=== PATIENT | male | born 1975 | race Hispanic/Latino ===

== ENCOUNTER → 2018-04-30 09:09 | Outpatient (CLI) | payer OTHER, SELFPAY ==
[2018-04-30 09:56] LABS: HEMOLYSIS < 15 (0-50); Iron 105 ug/dL (49-181)
[2018-04-30 09:58] LABS: Alanine Aminotransferase 80 IU/L (21-72); Albumin 4.9 g/dL (3.5-5.0); Albumin Globulin Ratio 1.6 (1.0-2.8); Alkaline Phosphatase 55 U/L (38-126); Aspartate Aminotransferase 38 IU/L (17-59); Bilirubin Total 2.5 mg/dL (0.2-1.3); Bilirubin Unconjugated 2.2 mg/dL (0.0-1.1); Blood Urea Nitrogen 12 mg/dL (9-20); Calcium 9.6 mg/dL (8.4-10.2); Carbon Dioxide 29 mmol/L (22-32); Chloride 101 mmol/L (98-107); Estimated Glomerular Filt Rate > 60.0 mL/min (>60); Globulin 3.1 g/dL (1.7-4.1); Glucose 103 mg/dL (70-100); HEMOLYSIS < 15 (0-50); Potassium 4.6 mmol/L (3.4-5.1); Sodium 139 mmol/L (137-145)
[2018-04-30 10:07] LABS: Percent Iron Saturation 29 % (20-50); Total Iron Binding Capacity 368 ug/dL (261-462); Transferrin 304 mg/dL (206-381)
[2018-04-30 10:49] LABS: Hep C Virus Ab w/Reflex Quant NEGATIVE s/c (NEGATIVE)
[2018-05-03 13:10] LABS: Ceruloplasmin 27 mg/dL (18-36)
[2018-05-04 22:09] LABS: ANA Screen NEGATIVE (Negative); DNA Antibody Crithidia IFA NEGATIVE (Negative); Rheumatoid Factor <14 IU/mL; Sjogren Antiboday SS-A <1.0 NEG AI (<1.0 NEGATIVE); Sjogren Antiboday SS-B <1.0 NEG AI (<1.0 NEGATIVE); Sm Antibody <1.0 NEG AI (<1.0 NEGATIVE); Sm/RNP Antibody <1.0 NEG AI (<1.0 NEGATIVE)
== END ==
PROVIDERS: PCP Internal Medicine; Visit Provider Internal Medicine
DX: R74.0 Nonspecific elevation of levels of transaminase and lactic acid dehydrogenase [LDH] (principal); R94.5 Abnormal results of liver function studies
CPT/HCPCS: 80048; 80076; 82390; 83540; 83550; 86038; 86376; 86430; 86803

== ENCOUNTER 2018-09-28 10:18 | Emergency (ER) | payer OTHER, SELFPAY ==
[2018-09-28 10:28] VITALS: BP 133/85; PULSE 86; RESP 18; TEMP 36.9; O2SAT 100; BMI 27.3
--- NOTE | 2018-09-28 10:30 | ED_ITS ---
HPI - General Adult General Chief complaint: Extremity Problem,Nontraumatic Stated complaint: Electrical shock at home Time Seen by Provider: 09/28/18 10:29 Source: patient Mode of arrival: ambulatory Limitations: no limitations History of Present Illness HPI narrative: 43-year-old male who was working on a 110 light socket at his house. He states that he thought that he had turned the sports development officer however when he was using his tools he received shot. He states that he felt ago through both of his fingers. No loss of consciousness. No problems breathing. States he is having a small amount of chest pain med also has a diagnosis of costochondritis. Has not tried anything for symptoms prior to arrival. Related Data Home Medications Medication Instructions Recorded Confirmed celecoxib [Celebrex] 200 mg PO BIDCC #0 05/18/17 06/21/18 omeprazole 20 mg capsule,delayed 20 mg PO DAILY 03/22/18 06/21/18 release rizatriptan 10 mg tablet See Rx Instructions PO .COMPLEX 06/21/18 PRN tab Previous Rx's Medication Instructions Recorded Right Shoulder Pillow #1 ea 12/28/17 verapamil ER 180 mg 24 hr 180 mg PO DAILY #90 cap 03/14/18 capsule,extended release Allergies Allergy/AdvReac Type Severity Reaction Status Date / Time No Known Drug Allergies Allergy Verified 06/21/18 15:22 Review of Systems Constitutional Denies fever(s) Cardiovascular Reports chest pain and Denies dyspnea Respiratory Denies dyspnea Gastrointestinal Gastrointestinal: Denies abdominal pain, Denies nausea and Denies vomiting Genitourinary Denies dysuria Musculoskeletal Denies myalgias and Denies arthralgias Comments: Pain in bilateral fingers Integumentary/Breasts Denies lesions and Denies rash Neurologic Denies behavioral changes Psychiatric Denies behavioral changes Hematologic/Lymphatic Denies easy bleeding and Denies easy bruising [facility] Medical History Transaminitis (Chronic) Abnormal LFTs (Chronic) GERD (gastroesophageal reflux disease) (Chronic ~2005) 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) Migraine with aura and without status migrainosus, not intractable (Chronic 02/15/17) Gilbert's syndrome (Chronic 04/06/17) Acne (Chronic ~1990) Migraines (Chronic ~2011) Shoulder pain (Chronic ~2012) Tinnitus (Chronic ~1998) Chicken pox (Resolved ~1979) Uveitis (Resolved ~2002) Surgical History Anesthesia (Resolved) History of removal of cyst (Resolved) History of tonsillectomy (~1978) Family History Child Age: 21 Hypertension Mental health problem Grandfather Lupus Prostate cancer Hypertension Stroke Diabetes mellitus Grandmother Age: 90 Hypertension Cervical cancer Sister Age: 36 Cancer Mental health problem DCIS (ductal carcinoma in situ) Mother Autoimmune disease Social History Smoking Status: Former smoker Social History Smoking Status: Former smoker Exam Initial Vital Signs Initial Vital Signs: Vital Signs Temperature 98.5 F 09/28/18 10:28 Pulse Rate 86 09/28/18 10:28 Respiratory Rate 18 09/28/18 10:28 Blood Pressure 133/85 09/28/18 10:28 Pulse Oximetry 100 09/28/18 10:28 Const General: cooperative, comfortable, well developed, well groomed and No acute distress Orientation: alert and awake HENMT Head: normal to inspection and normocephalic Chest Chest: normal inspection of the chest and No crepitus Resp Effort & Inspection: normal respiratory effort Auscultation: clear to auscultation bilaterally Cardio Rate: regular rate Rhythm: regular rhythm Pulses: radial pulses present GI Inspection: non-distended Palpation: soft, No firm and No tender Skin Lesions: lesions noted Rashes: rash noted Other: No william on the skin. No lesions. Neuro General: alert, awake and oriented x3 Speech: speech normal Motor: muscle tone normal throughout Extrem General: normal to inspection and capillary refill normal Psych Appearance: grossly normal and well kempt Course Orders Ordered: ED Orders 09/28/18 10:35 EKG-12 Lead Stat Vital Signs - 8 hr 09/28/18 10:28 Temperature 98.5 F Pulse Rate 86 Respiratory Rate 18 Blood Pressure 133/85 Pulse Oximetry 100 Medical Decision Making ECG Data Attestation: I personally reviewed and interpreted this ECG as follows: Prior ECG tracings: not available for review Interpretation: Sinus rhythm Ventricular rate is 72 Normal axis Normal QRS Normal QTC No ST T wave changes MDM Narrative Medical decision making narrative: Patient's EKG is unremarkable. No arrhythmia on the monitor. No william on the areas of his skin where he was shocked. Hold on further workup for now. Patient was given return precautions and follow-up instructions. He expressed understanding and agreement plan. Discharge Plan Departure Patient Disposition: Home Clinical Impression: Electrocution Instructions: Electrical William and Injuries Activity Restrictions/Additional Instructions: No abnormal findings found today on your exam. Return to the emergency department for any new or worsening symptoms Prescriptions: No Action celecoxib [Celebrex] 200 MG capsule 200 mg PO BIDCC Qty: 0 RF: 0 omeprazole 20 mg capsule,delayed release(DR/EC) 20 mg PO DAILY RF: 0 rizatriptan 10 mg tablet See Patient Comments mg PO .COMPLEX PRN (Reason: migraine headache) RF: 0 Right Shoulder Pillow Qty: 1 RF: 0 verapamil 180 mg capsule,ext rel. pellets 24 hr 180 mg PO DAILY Qty: 90 RF: 3 Referrals: Duc Gannon MD [Primary Care Provider] -
[2018-09-28 11:00] VITALS: BP 113/80; PULSE 79; RESP 18; O2SAT 98
[2018-09-28 11:26] VITALS: BP 127/78; PULSE 79; RESP 18; TEMP 36.3; O2SAT 98
== END 2018-09-28 11:28 | disposition home or self-care (01) ==
PROVIDERS: Emergency Provider Emergency Medicine; Family Provider Internal Medicine; PCP Internal Medicine
DX: T75.4XXA Electrocution, initial encounter (principal)
CPT/HCPCS: 93005; 99282; 99283

== ENCOUNTER → 2018-10-04 09:19 | Outpatient (CLI) | payer OTHER, SELFPAY ==
[2018-10-04 10:23] LABS: Alanine Aminotransferase 53 IU/L (21-72); Albumin 5.2 g/dL (3.5-5.0); Albumin Globulin Ratio 1.7 (1.0-2.8); Alkaline Phosphatase 67 U/L (38-126); Aspartate Aminotransferase 34 IU/L (17-59); BUN Creatinine Ratio 16.3 (6-22); Bilirubin Total 2.7 mg/dL (0.2-1.3); Bilirubin Unconjugated 2.4 mg/dL (0.0-1.1); Blood Urea Nitrogen 13 mg/dL (9-20); Calcium 10.1 mg/dL (8.4-10.2); Carbon Dioxide 30 mmol/L (22-32); Chloride 99 mmol/L (98-107); Estimated Glomerular Filt Rate > 60.0 mL/min (>60); Glucose 92 mg/dL (70-100); HEMOLYSIS < 15 (0-50); Sodium 142 mmol/L (137-145); Total Protein 8.2 g/dL (6.3-8.2)
== END ==
PROVIDERS: PCP Internal Medicine; Visit Provider Internal Medicine
DX: R74.0 Nonspecific elevation of levels of transaminase and lactic acid dehydrogenase [LDH] (principal); R94.5 Abnormal results of liver function studies
CPT/HCPCS: 36415; 80048; 80076

== ENCOUNTER → 2019-05-27 09:46 | Outpatient (CLI) | payer OTHER, SELFPAY ==
[2019-05-27 11:08] LABS: Alanine Aminotransferase 53 IU/L (<50); Albumin 5.5 g/dL (3.5-5.0); Albumin Globulin Ratio 1.7 (1.0-2.8); Alkaline Phosphatase 72 U/L (38-126); Aspartate Aminotransferase 33 IU/L (17-59); Bilirubin Total 3.2 mg/dL (0.2-1.3); Blood Urea Nitrogen 12 mg/dL (9-20); Calcium 10.2 mg/dL (8.4-10.2); Carbon Dioxide 27 mmol/L (22-32); Chloride 100 mmol/L (98-107); Cholesterol 204 mg/dL (140-199); Estimated Glomerular Filt Rate > 60.0 mL/min (>60); Globulin 3.2 g/dL (1.7-4.1); Glucose 101 mg/dL (70-100); HDL Cholesterol 29 mg/dL (40-60); HEMOLYSIS < 15 (0-50); LDL Cholesterol Calculated 121 mg/dL (<100); Potassium 4.2 mmol/L (3.4-5.1); Sodium 142 mmol/L (137-145); Total Protein 8.7 g/dL (6.3-8.2); Triglycerides 272 mg/dL (35-150)
[2019-05-27 11:10] LABS: C-Reactive Protein Quant < 0.5 mg/dL (<1.0)
[2019-05-27 11:12] LABS: Erythrocyte Sedimentation Rate 1 MM/HR (0-15)
[2019-05-27 11:17] LABS: Appearance Urine UA CLEAR; Bilirubin Urine UA NEGATIVE (NEGATIVE); Color Urine UA YELLOW; Glucose Urine UA NEGATIVE (Negative); Ketones Urine UA NEGATIVE (NEGATIVE); Leukocyte Esterase Urine UA 1+ (NEGATIVE); Nitrite Urine UA NEGATIVE (Negative); Occult Blood Urine UA TRACE-INTACT (Negative); Protein Urine UA NEGATIVE (Negative); Specific Gravity Urine UA <=1.005 (1.000-1.035); Urobilinogen Urine UA 0.2 E.U./dL (0.2)
[2019-05-27 11:18] LABS: Bacteria Urine None Seen; RBC Urine None Seen (0-5/HPF)
[2019-05-27 11:35] LABS: Prostate Specific Antigen Scrn 3.62 ng/mL (0.1-4.0)
[2019-05-27 11:51] LABS: Squamous Epithelial Cell Urine None Seen (0-5/HPF); WBC Urine 1-5/HPF (0-5/HPF)
== END ==
PROVIDERS: PCP Internal Medicine; Referring Provider Internal Medicine; Visit Provider Internal Medicine
DX: Z13.220 Encounter for screening for lipoid disorders (principal); Z13.6 Encounter for screening for cardiovascular disorders; M35.2 Behcet's disease; R94.5 Abnormal results of liver function studies; Z12.5 Encounter for screening for malignant neoplasm of prostate; R35.8 Other polyuria
CPT/HCPCS: 36415; 80053; 80061; 81003; 81015; 85651; 86140; G0103

== ENCOUNTER → 2020-01-30 11:10 | Outpatient (CLI) | payer OTHER, SELFPAY ==
[2020-01-31 06:47] LABS: COVID19 Sendout Not Detected (Not Detect)
== END ==
PROVIDERS: PCP Internal Medicine; Visit Provider Physician Assistant
DX: Z03.818 Encounter for observation for suspected exposure to other biological agents ruled out (principal)
CPT/HCPCS: 87635

== ENCOUNTER → 2020-12-30 10:23 | Outpatient (CLI) | payer BC, OTHER, SELFPAY ==
[2020-12-30 12:45] LABS: Basophils Absolute Auto 0 /uL (0-100); Basophils Percent Auto 0.6 % (0-2); Eosinophils Absolute Auto 100 /uL (0-450); Hematocrit 45.2 % (41-53); Hemoglobin 15.9 g/dL (13.5-17.5); Lymphocytes Absolute Auto 1500 /uL (1100-4500); Lymphocytes Percent Auto 33.1 % (25-40); Mean Corpuscular HGB Conc 35.1 % (30-36); Mean Corpuscular Hemoglobin 30.3 PG (26-34); Mean Corpuscular Volume 86.3 fL (80-100); Monocytes Absolute Auto 500 /uL (0-900); Monocytes Percent Auto 11.6 % (3-14); Neutrophils Absolute Auto 2400 /uL (1500-7000); Neutrophils Percent Auto 52.7 % (50-75); Platelet Count 200 X10^3/uL (150-400); Red Blood Cell Count 5.23 X10^6/uL (4.5-5.9); Red Cell Distribution Width 13.8 % (11.6-14.8); White Blood Cell Count 4.6 X10^3/uL (4.5-11.0)
[2020-12-30 13:02] LABS: Add Manual Diff / Slide Review SLIDE REVIEW
[2020-12-30 13:12] LABS: Alanine Aminotransferase 55 IU/L (<50); Albumin 5.1 g/dL (3.5-5.0); Albumin Globulin Ratio 1.8 (1.0-2.8); Alkaline Phosphatase 67 U/L (38-126); Aspartate Aminotransferase 34 IU/L (17-59); BUN Creatinine Ratio 17.4 (6-22); Bilirubin Total 2.5 mg/dL (0.2-1.3); Blood Urea Nitrogen 12 mg/dL (9-20); C-Reactive Protein Quant < 0.5 mg/dL (<1.0); Calcium 9.8 mg/dL (8.4-10.2); Carbon Dioxide 28 mmol/L (22-32); Chloride 103 mmol/L (98-107); Cholesterol 195 mg/dL (140-199); Estimated Glomerular Filt Rate > 60.0 mL/min (>60); Globulin 2.9 g/dL (1.7-4.1); Glucose 97 mg/dL (70-100); HDL Cholesterol 30 mg/dL (40-60); HEMOLYSIS 20 (0-50); LDL Cholesterol Calculated 118 mg/dL (<100); Potassium 4.3 mmol/L (3.4-5.1); Sodium 140 mmol/L (137-145); Triglycerides 234 mg/dL (35-150)
[2020-12-30 13:35] LABS: Erythrocyte Sedimentation Rate 4 MM/HR (0-15)
[2020-12-30 13:41] LABS: Anisocytosis 1+
== END ==
PROVIDERS: PCP Internal Medicine; Referring Provider Internal Medicine; Visit Provider Internal Medicine
DX: R94.5 Abnormal results of liver function studies (principal); M35.2 Behcet's disease; E80.4 Gilbert syndrome; Z13.220 Encounter for screening for lipoid disorders
CPT/HCPCS: 36415; 80053; 80061; 85025; 85651; 86140

== ENCOUNTER → 2022-05-25 16:15 | Outpatient (CLI) | payer BC, OTHER, SELFPAY ==
[2022-05-25 17:43] LABS: Alanine Aminotransferase 89 IU/L (<50); Albumin 4.7 g/dL (3.5-5.0); Albumin Globulin Ratio 1.5 (1.0-2.8); Alkaline Phosphatase 63 U/L (38-126); Aspartate Aminotransferase 39 IU/L (17-59); BUN Creatinine Ratio 18.5 (6-22); Bilirubin Total 2.6 mg/dL (0.2-1.3); Blood Urea Nitrogen 15 mg/dL (9-20); Calcium 9.2 mg/dL (8.4-10.2); Carbon Dioxide 26 mmol/L (22-32); Chloride 100 mmol/L (98-107); Estimated Glomerular Filt Rate > 60 mL/min (>60); Globulin 3.1 g/dL (1.7-4.1); Glucose 76 mg/dL (70-100); HEMOLYSIS 16 (0-50); Potassium 3.9 mmol/L (3.4-5.1); Sodium 138 mmol/L (137-145); Total Protein 7.8 g/dL (6.3-8.2)
[2022-05-25 18:00] LABS: Vitamin D 25 Hydroxy (D3) 28.3 ng/mL (30.0-100.0)
== END ==
PROVIDERS: PCP Internal Medicine; Referring Provider Internal Medicine; Visit Provider Internal Medicine
DX: K21.9 Gastro-esophageal reflux disease without esophagitis (principal); R94.5 Abnormal results of liver function studies
CPT/HCPCS: 36415; 80053; 82306

== ENCOUNTER → 2022-06-09 15:44 | Outpatient (CLI) | payer BC, OTHER, SELFPAY ==
--- NOTE | 2022-06-09 15:45 | DI.US.S_ITS ---
PROCEDURE: US ABDOMEN LIMITED INDICATIONS: ABNORMAL LIVER FUNCTION TESTS TECHNIQUE: Real-time focused scanning was performed of the abdomen, with image documentation. COMPARISON: None. FINDINGS: Liver is echogenic consistent with probable diffuse hepatic steatosis. There are multiple focal hypodense lesions in the liver, of uncertain etiology. The anterior left lobe of the liver is a 2.8 x 1.3 x 1.6 cm lesion. In the anterior right lobe adjacent to the gallbladder is a 1.1 x 1.7 x 2.2 cm hypoechoic lesion. Gallbladder is unremarkable. Biliary tree not well seen. Visualized portions the pancreas are unremarkable. IMPRESSION: 1. Diffusely echogenic liver consistent with fatty change, with multiple focal hypodense lesions, of unknown etiology. Comment: Recommend multiphase CT versus multiphase MRI to better evaluate the liver. Dictated by: Miquel Morin M.D. on 06/09/2022 at 16:47 Approved by: Miquel Morin M.D. on 06/09/2022 at 16:49
== END ==
PROVIDERS: PCP Internal Medicine; Referring Provider Internal Medicine; Visit Provider Internal Medicine
DX: K76.9 Liver disease, unspecified (principal); R94.5 Abnormal results of liver function studies
CPT/HCPCS: 76705

== ENCOUNTER 2023-11-10 07:23 | Emergency (ER) | payer OTHER, SELFPAY ==
[2023-11-10] VITALS (9 sets, daily range): BP systolic 119–154; BP diastolic 74–86; PULSE 105–121; RESP 18; TEMP 37.7; O2SAT 95–99; BMI 26.6
--- NOTE | 2023-11-10 07:33 | DI.RAD.S_ITS ---
PROCEDURE: XR CHEST 2V INDICATIONS: congestion, cough for 5 days TECHNIQUE: 2 views of the chest were acquired. COMPARISON: None. FINDINGS: Surgical changes and devices: None. Lungs and pleura: Mild diffuse interstitial prominence. No pleural effusions or pneumothorax. Mediastinum: Mediastinal contours are normal. Heart size is normal. Bones and chest wall: No suspicious bony abnormalities. Soft tissues appear unremarkable. IMPRESSION: Mild diffuse interstitial prominence. Question viral pneumonitis. Dictated by: Miquel Morin M.D. on 11/10/2023 at 8:11 Approved by: Miquel Morin M.D. on 11/10/2023 at 8:12
--- NOTE | 2023-11-10 08:15 | ED_ITS ---
HPI - URI/Sore Throat General Chief Complaint: Upper Respiratory Symptoms Stated Complaint: COVID since 11/04 SOB/fever Time Seen by Provider: 11/10/23 07:25 Source: patient Mode of arrival: Ambulatory History of Present Illness HPI Narrative: 48-year-old male with a history of Behcet's disease presents for cough, shortness of breath, intermittent fevers. Has been taking [id number] cough and cold medications with minimal relief. Patient states that since last night he has had multiple episodes of cough with blood in his sputum. Related Data Home Medications Medication Instructions Recorded Confirmed ketoconazole 2 % shampoo 1 applictn topical 2XW 01/08/20 06/01/22 ibuprofen 200 mg tablet 400 mg PO Q6H PRN 06/01/22 06/01/22 Previous Rx's Medication Instructions Recorded methylprednisolone 4 mg tablets in See Rx Instructions PO .COMPLEX 11/10/23 a dose pack (Medrol (Anil)) #21 ea Allergies Allergy/AdvReac Type Severity Reaction Status Date / Time No Known Drug Allergies Allergy Verified 11/10/23 07:39 Patient History Medical History Abnormal LFTs Migraines (~2011) Shoulder pain (~2012) Acne (~1990) Chicken pox (~1979) Uveitis (~2002) Tinnitus (~1998) GERD (gastroesophageal reflux disease) (~2005) Gilbert's syndrome (04/06/17) Migraine with aura and without status migrainosus, not intractable (02/15/17) Behcet's syndrome (02/15/17) Surgical History Anesthesia History of removal of cyst History of tonsillectomy (~1978) Family History Child Age: 26 Hypertension Mental health problem Grandfather Lupus Prostate cancer Hypertension Stroke Diabetes mellitus Grandmother Age: 95 Hypertension Cervical cancer Sister Age: 41 Cancer Mental health problem DCIS (ductal carcinoma in situ) Mother Autoimmune disease Social History Smoking Status: Former smoker Smoking Status: Former smoker alcohol intake frequency: 0-2 drinks per day Substance Use Type: does not use Exam Initial Vital Signs Initial Vital Signs: Vital Signs Temperature 99.9 F H 11/10/23 07:32 Pulse Rate 121 H 11/10/23 07:32 Respiratory Rate 18 11/10/23 07:32 Blood Pressure 154/84 H 11/10/23 07:32 Pulse Oximetry 98 11/10/23 07:32 Oxygen Delivery Method Room Air 11/10/23 07:32 Const: Awake, alert, no acute distress, nontoxic appearing Cardiac: Tachycardia, regular rhythm RESP: unlabored, clear bilaterally, no wheezing Skin: Warm, Dry, intact, no rashes Neuro: AO x3, CN II-XII grossly intact, moves all extremities Course Orders Ordered: Discontinued Medications Dexamethasone (Dexamethasone 10 Mg/Ml Vial) 10 mg IV NOW ONE Stop: 11/10/23 10:28 Last Admin: 11/10/23 10:34 Dose: 10 mg Documented By: DIANNA Sodium Chloride (Normal Saline 0.9%) 1,000 mls @ 1,000 mls/hr IV BOLUS ONE Stop: 11/10/23 09:21 Last Infusion: 11/10/23 10:36 Dose: Infused Documented By: Admin: 11/10/23 08:30 Dose: 1,000 mls/hr Documented By: DIANNA(2) Ketorolac Tromethamine (Ketorolac 30 Mg/Ml Vial) 15 mg IV NOW ONE Stop: 11/10/23 08:23 Last Admin: 11/10/23 08:30 Dose: 15 mg Documented By: DIANNA(2) Vital Signs Vital signs: Vital Signs - 8 hr 11/10/23 07:32 11/10/23 07:35 11/10/23 08:00 Temperature 99.9 F H Pulse Rate 121 H 111 H 108 H Respiratory Rate 18 Blood Pressure 154/84 H Pulse Oximetry 98 97 95 Oxygen Delivery Method Room Air 11/10/23 08:11 11/10/23 08:11 11/10/23 08:30 Temperature Pulse Rate 109 H Respiratory Rate Blood Pressure 119/74 123/81 Pulse Oximetry 96 Oxygen Delivery Method 11/10/23 08:30 11/10/23 09:00 11/10/23 09:00 Temperature Pulse Rate 106 H 111 H Respiratory Rate Blood Pressure 126/85 Pulse Oximetry 97 99 Oxygen Delivery Method MDM - URI/Sore Throat Differential Diagnosis Differential diagnosis: Likely upper respiratory infection, viral infection and bronchitis Lab Data 11/10/23 09:00 11/10/23 09:00 Labs: Lab Results 11/10/23 11/10/23 Range/Units 07:32 09:00 WBC 10.3 (4.5-11.0) X10^3/uL RBC 5.07 (4.5-5.9) X10^6/uL Hgb 15.7 (13.5-17.5) g/dL Hct 43.1 (41-53) % MCV 85.0 (80-100) fL MCH 30.9 (26-34) PG MCHC 36.3 H (30-36) % RDW 13.1 (11.6-14.8) % Plt Count 236 (150-400) X10^3/uL Neut % (Auto) 74.8 (50-75) % Lymph % (Auto) 11.1 L (25-40) % Power % (Auto) 10.5 (3-14) % Eos % (Auto) 1.0 L (2-4) % Baso % (Auto) 2.6 H (0-2) % Neut # (Auto) 7700 H (7964-9181) /uL Lymph # (Auto) 1100 (2727-5747) /uL Power # (Auto) 1100 H (0-900) /uL Eos # (Auto) 100 (0-450) /uL Baso # (Auto) 300 H (0-100) /uL Sodium 137 (137-145) mmol/L Potassium 3.7 (3.4-5.1) mmol/L Chloride 105 (98-107) mmol/L Carbon Dioxide 23 (22-32) mmol/L BUN 11 (9-20) mg/dL Creatinine 0.83 (0.66-1.25) mg/dL Estimated GFR > 60 (>60) mL/min BUN/Creatinine Ratio 13.3 (6-22) Glucose 127 H (70-100) mg/dL Calcium 9.3 (8.4-10.2) mg/dL Total Bilirubin 2.5 H (0.2-1.3) mg/dL AST 37 (17-59) IU/L ALT 66 H (<50) IU/L Alkaline Phosphatase 63 (38-126) U/L Total Creatine Kinase 171 H (55-170) U/L Troponin I < 0.012 (0.01-0.034) ng/mL Total Protein 7.5 (6.3-8.2) g/dL Albumin 4.6 (3.5-5.0) g/dL Globulin 2.9 (1.7-4.1) g/dL Albumin/Globulin Ratio 1.6 (1.0-2.8) SARS-CoV-2 (PCR) Negative (Negative) Influenza A (RT-PCR) Flu a negative (NEGATIVE) Influenza B (RT-PCR) Flu b negative (NEGATIVE) RSV (PCR) Negative (Negative) Imaging Data Chest x-ray: Radiologist's Impression: PROCEDURE: XR CHEST 2V INDICATIONS: congestion, cough for 5 days TECHNIQUE: 2 views of the chest were acquired. COMPARISON: None. FINDINGS: Surgical changes and devices: None. Lungs and pleura: Mild diffuse interstitial prominence. No pleural effusions or pneumothorax. Mediastinum: Mediastinal contours are normal. Heart size is normal. Bones and chest wall: No suspicious bony abnormalities. Soft tissues appear unremarkable. IMPRESSION: Mild diffuse interstitial prominence. Question viral pneumonitis. Dictated by: Miquel Morin M.D. on 11/10/2023 at 8:11 Approved by: Miquel Morin M.D. on 11/10/2023 at 8:12 CT scan - chest: Radiologist's Impression: PROCEDURE: CT ANGIO CHEST PE PROTOCOL INDICATIONS: COUGH W/BLOOD, HX BEHCET disease TECHNIQUE: After the administration of intravenous contrast, 2 mm thick sections acquired from the pulmonary apices to the posterior costophrenic angles. 3-dimensional maximum intensity projection (MIP) coronal and sagittal reformats were then acquired through the thorax. For radiation dose reduction, the following was used: automated exposure control, adjustment of mA and/or kV according to patient size. COMPARISON: None. FINDINGS: Image quality: Diagnostic. Pulmonary arteries: Enhancement of the pulmonary artery is adequate. No filling defects to the level of the subsegmental pulmonary arteries. Main pulmonary artery is normal in caliber. Lower Neck: No enlarged lymph nodes. Thyroid: No thyroid nodules which require sonographic follow up, per consensus guidelines. Axillae: No enlarged lymph nodes. Chest Wall: Mild bilateral gynecomastia. Bones: No acute fracture. No aggressive appearing lytic or blastic osseous lesion.. Lungs and Pleura: No pneumothorax or pleural effusions. Ground-glass consolidation in the right upper lobe. Left lower lobe centrilobular nodules. Left lower lobe solid pulmonary nodule measuring 4 mm. Linear atelectasis in the middle lobe. Heart: Heart size is normal. No pericardial effusion. Thoracic Vessels: No aortic aneurysm. Mediastinum and Jerilyn: A few prominent and mildly enlarged mediastinal and hilar lymph nodes. For example, right hilar lymph node measures 1.7 x 1.5 cm (54) and left hilar lymph node measures 1.5 x 1.3 cm (60). Esophagus: No wall thickening. No hiatal hernia. Upper Abdomen: Diffuse hypoattenuation of the liver. IMPRESSION: 1. No acute pulmonary embolism. Main pulmonary artery is normal in caliber. 2. Ground-glass consolidation in the right upper lobe and centrilobular nodules in the left lower lobe are suggestive of multifocal infection and/or inflammation. Recommend follow-up imaging to document resolution. 3. Prominent and mildly enlarged mediastinal and hilar lymph nodes are likely reactive. Attention on follow-up. 4. Left lower lobe solid, noncalcified pulmonary nodule measuring 4 mm. Per Fleischner guidelines, if patient is low risk, no additional follow-up needed. If patient is high risk, consider repeat CT chest in 12 months. 5. Diffuse hypoattenuation of the liver suggestive of steatosis. Fleischner Society criteria for lung nodule followup. Nodule size (mm)Low-risk patientHigh-risk patient<=4No follow-up needed.Follow- up at 12 months; if no change, no further follow-up.>[id number] CT at 12 months; if no change, no further follow-up needed.Initial follow-up CT at 6-12 months, then 18-24 months if no change.>6-8Initial follow-up CT at 6-12 months, then 18-24 months if no change.Initial follow-up CT at 3-6 months, then 9-12 months and 24 months if no change.>8Follow-up CT at 3,9 and 24 months or PET and/or biopsySame as for low-risk patientsNon-solid (ground-glass) or partly solid nodules may require longer follow-up to exclude indolent adenocarcinoma. Dictated by: Nayan Harmon M.D. on 11/10/2023 at 10:08 Approved by: Nayan Harmon M.D. on 11/10/2023 at 10:15 [facility] Narrative Medical decision making narrative: Nontoxic appearing patient with blood in his sputum. He was tachycardic, with interstitial changes on chest x-ray. With history of Behcet's syndrome laboratory work and a CT angio will be ordered. CT angio shows no acute pulmonary embolism. There were multifocal findings of change to suggest viral disease. A small nodule was also found incidentally. Hemoglobin normal at 15.7. Patient informed of lab and imaging findings as well as the pulmonary nodule. Recommended continued conservative treatment, steroid taper sent to pharmacy of choice. Discharge Plan Departure Patient Disposition: Home Clinical Impression: Viral pneumonia Instructions: Atypical Pneumonia Activity Restrictions/Additional Instructions: Your laboratory work today was normal. Your CT did not show any complications of your Behcet's disease. It appears as though you have viral pneumonia. This will resolve with time. I am sending steroids to your pharmacy to help you, these may make you feel better sooner. Follow up with your primary care doctor. An incidental 4 mm pulmonary nodule was seen in your left lower lobe of your lung. If you are or were a smoker or have any other risk factors for lung cancer you may need repeat imaging in 1 year. Please follow up with your primary care doctor about this nodule. Prescriptions: New methylprednisolone [Medrol (Anil)] 4 mg tablets,dose pack See Rx Instructions .ROUTE .COMPLEX Qty: 21 0RF Rx Instructions: orally per package directions No Action ibuprofen 200 mg tablet 400 mg PO Q6H PRN ketoconazole 2 % shampoo 1 applictn TOP 2XW Referrals: Duc Gannon MD [Primary Care Provider] - Stand Alone Forms: Patient Portal/API, Work Release Note
--- NOTE | 2023-11-10 08:22 | DI.CT.S_ITS ---
PROCEDURE: CT ANGIO CHEST PE PROTOCOL INDICATIONS: COUGH W/BLOOD, HX BEHCET disease TECHNIQUE: After the administration of intravenous contrast, 2 mm thick sections acquired from the pulmonary apices to the posterior costophrenic angles. 3-dimensional maximum intensity projection (MIP) coronal and sagittal reformats were then acquired through the thorax. For radiation dose reduction, the following was used: automated exposure control, adjustment of mA and/or kV according to patient size. COMPARISON: None. FINDINGS: Image quality: Diagnostic. Pulmonary arteries: Enhancement of the pulmonary artery is adequate. No filling defects to the level of the subsegmental pulmonary arteries. Main pulmonary artery is normal in caliber. Lower Neck: No enlarged lymph nodes. Thyroid: No thyroid nodules which require sonographic follow up, per consensus guidelines. Axillae: No enlarged lymph nodes. Chest Wall: Mild bilateral gynecomastia. Bones: No acute fracture. No aggressive appearing lytic or blastic osseous lesion.. Lungs and Pleura: No pneumothorax or pleural effusions. Ground-glass consolidation in the right upper lobe. Left lower lobe centrilobular nodules. Left lower lobe solid pulmonary nodule measuring 4 mm. Linear atelectasis in the middle lobe. Heart: Heart size is normal. No pericardial effusion. Thoracic Vessels: No aortic aneurysm. Mediastinum and Jerilyn: A few prominent and mildly enlarged mediastinal and hilar lymph nodes. For example, right hilar lymph node measures 1.7 x 1.5 cm (4/54) and left hilar lymph node measures 1.5 x 1.3 cm (4/60). Esophagus: No wall thickening. No hiatal hernia. Upper Abdomen: Diffuse hypoattenuation of the liver. IMPRESSION: 1. No acute pulmonary embolism. Main pulmonary artery is normal in caliber. 2. Ground-glass consolidation in the right upper lobe and centrilobular nodules in the left lower lobe are suggestive of multifocal infection and/or inflammation. Recommend follow-up imaging to document resolution. 3. Prominent and mildly enlarged mediastinal and hilar lymph nodes are likely reactive. Attention on follow-up. 4. Left lower lobe solid, noncalcified pulmonary nodule measuring 4 mm. Per Fleischner guidelines, if patient is low risk, no additional follow-up needed. If patient is high risk, consider repeat CT chest in 12 months. 5. Diffuse hypoattenuation of the liver suggestive of steatosis. Fleischner Society criteria for lung nodule followup. Nodule size (mm)Low-risk patientHigh-risk patient<=4No follow-up needed.Follow-up at 12 months; if no change, no further follow-up.>3-4Miavck-ac CT at 12 months; if no change, no further follow-up needed.Initial follow-up CT at 6-12 months, then 18-24 months if no change.>6-8Initial follow-up CT at 6-12 months, then 18-24 months if no change.Initial follow-up CT at 3-6 months, then 9-12 months and 24 months if no change.>8Follow-up CT at 3,9 and 24 months or PET and/or biopsySame as for low-risk patientsNon-solid (ground-glass) or partly solid nodules may require longer follow-up to exclude indolent adenocarcinoma. Dictated by: Nayan Harmon M.D. on 11/10/2023 at 10:08 Approved by: Nayan Harmon M.D. on 11/10/2023 at 10:15
[2023-11-10] MEDS: KETOROLAC 30 MG/ML VIAL 15 MG IV (08:30)
[2023-11-10] MEDS: SODIUM CHLORIDE 0.9% 1,000 ML 1000 ML IV (08:30)
[2023-11-10 08:48] LABS: COVID-19 CEPHEID 4-PLEX PCR Negative (Negative); Influenza A - CEPHEID Flu A NEGATIVE (NEGATIVE); Influenza B - CEPHEID Flu B NEGATIVE (NEGATIVE); Respiratory Syncytial Virus Negative (Negative)
[2023-11-10 09:13] LABS: Add Manual Diff / Slide Review NO; Basophils Absolute Auto 300 /uL (0-100); Basophils Percent Auto 2.6 % (0-2); Eosinophils Absolute Auto 100 /uL (0-450); Hematocrit 43.1 % (41-53); Hemoglobin 15.7 g/dL (13.5-17.5); Lymphocytes Absolute Auto 1100 /uL (1100-4500); Lymphocytes Percent Auto 11.1 % (25-40); Mean Corpuscular HGB Conc 36.3 % (30-36); Mean Corpuscular Hemoglobin 30.9 PG (26-34); Monocytes Absolute Auto 1100 /uL (0-900); Monocytes Percent Auto 10.5 % (3-14); Neutrophils Absolute Auto 7700 /uL (1500-7000); Neutrophils Percent Auto 74.8 % (50-75); Platelet Count 236 X10^3/uL (150-400); Red Blood Cell Count 5.07 X10^6/uL (4.5-5.9); Red Cell Distribution Width 13.1 % (11.6-14.8); White Blood Cell Count 10.3 X10^3/uL (4.5-11.0)
[2023-11-10 09:24] LABS: Alanine Aminotransferase 66 IU/L (<50); Albumin 4.6 g/dL (3.5-5.0); Albumin Globulin Ratio 1.6 (1.0-2.8); Alkaline Phosphatase 63 U/L (38-126); Aspartate Aminotransferase 37 IU/L (17-59); BUN Creatinine Ratio 13.3 (6-22); Bilirubin Total 2.5 mg/dL (0.2-1.3); Blood Urea Nitrogen 11 mg/dL (9-20); Calcium 9.3 mg/dL (8.4-10.2); Carbon Dioxide 23 mmol/L (22-32); Chloride 105 mmol/L (98-107); Creatine Kinase 171 U/L (55-170); Estimated Glomerular Filt Rate > 60 mL/min (>60); Globulin 2.9 g/dL (1.7-4.1); Glucose 127 mg/dL (70-100); HEMOLYSIS < 15 (0-50); Potassium 3.7 mmol/L (3.4-5.1); Sodium 137 mmol/L (137-145); Total Protein 7.5 g/dL (6.3-8.2)
[2023-11-10 09:35] LABS: Troponin I < 0.012 ng/mL (0.01-0.034)
[2023-11-10] MEDS: DEXAMETHASONE 10 MG/ML VIAL IV (10:34)
== END 2023-11-10 10:47 | disposition home or self-care (01) ==
PROVIDERS: Emergency Provider Emergency Medicine; PCP Internal Medicine
DX: J18.9 Pneumonia, unspecified organism (principal); R00.0 Tachycardia, unspecified; R06.02 Shortness of breath; Z11.52 Encounter for screening for COVID-19
CPT/HCPCS: 0241U; 36415; 71046; 71275; 80053; 82550; 84484; 85025; 96361; 96374; 96375; 99284; J1100; J1885; Q9967

== ENCOUNTER → 2023-12-18 08:19 | Outpatient (CLI) | payer OTHER, SELFPAY ==
[2023-12-18 09:32] LABS: Cholesterol 191 mg/dL (140-199); HDL Cholesterol 28 mg/dL (40-60); LDL Cholesterol Calculated 98 mg/dL (<100); Triglycerides 324 mg/dL (35-150)
== END ==
PROVIDERS: PCP Internal Medicine; Referring Provider Internal Medicine; Visit Provider Internal Medicine
DX: Z13.6 Encounter for screening for cardiovascular disorders (principal)
CPT/HCPCS: 36415; 80061

== ENCOUNTER → 2024-11-18 10:51 | Outpatient (CLI) | payer OTHER, SELFPAY ==
--- NOTE | 2024-11-18 10:52 | DI.CT.S_ITS ---
PROCEDURE: CT CHEST WO CON INDICATIONS: 1 Year Follow Up: Pulm Nodules TECHNIQUE: Noncontrast 2.0-2.5 mm thick sections acquired from the pulmonary apices to the posterior costophrenic angles. 7 mm thick axial MIP and 5 mm coronal and sagittal reformats were then acquired. For radiation dose reduction, the following was used: automated exposure control, adjustment of mA and/or kV according to patient size. COMPARISON: [facility], CT, CT ANGIO CHEST PE PROTOCOL, 11/10/2023, 9:51. FINDINGS: Image quality: Diagnostic. Lower Neck: No enlarged lymph nodes. Thyroid: No thyroid nodules which require sonographic follow up, per consensus guidelines. Axillae: No enlarged lymph nodes. Chest Wall: Unremarkable. Bones: Unremarkable. Lungs and Pleura: No pneumothorax or pleural effusions. Linear scarring/atelectasis in anterior aspect of right middle lobe is seen. Previously described ill-defined ground-glass opacities in right upper lobe has resolved. Previously described 4 mm left lower lobe solid nodule remains unchanged series 3, image 163. No new suspicious pulmonary nodule is noted. No acute airspace consolidations. Heart: Heart size is normal. No pericardial effusion. Thoracic Vessels: The aorta and pulmonary arteries demonstrate normal size. Mediastinum and Jerilyn: No enlarged lymph nodes. Esophagus: No wall thickening. Small hiatal hernia. Upper Abdomen: Visualized upper abdomen solid organs and bowel loops appear normal. Hepatic steatosis is seen. IMPRESSION: 1. Stable 4 mm left lower lobe solid nodule likely represent benign process. No new suspicious pulmonary nodule is seen. No focal infiltrate, pleural effusion or pneumothorax. Linear scarring/atelectasis in right middle lobe. 2. No mediastinal or hilar lymphadenopathy on the current study. Small hiatal hernia. 3. Moderate hepatic steatosis. Fleischner Society criteria for SOLID lung nodule followup. Nodule size (mm)Low-risk patientHigh-risk patient<6 (single or multiple)No routine followup.Optional CT at 12 months. 6-8 (single or multiple)CT at 6-12 months, then optional CT at 18-24 mo.CT at 6-12 months, then CT at 18-24 months. >8 (single)CT at 3 months, PET-CT, or biopsy. Same as for low-risk pts. >8 (multiple)CT at 3-6 months, then optional CT at 18-24 mo.CT at 3-6 months, then CT at 18-24 months. Fleischner Society criteria for SUB-SOLID lung nodule followup. Solitary pure ground-glass nodules<6 mm (ground glass or part solid)No followup needed. 6 mm or larger (ground glass)CT at 6-12 months to confirm persistence, then CT every 2 years until 5 years.6 mm or larger (part solid)CT at 3-6 months to confirm persistence, then annual CT until 5 years if unchanged and solid component remains <6 mm. Multiple sub-solid nodules<6 mmCT at 3-6 months, then CT consider at 2 & 4 years for high risk patients. [address] at 3-6 months. Subsequent management based on most suspicious lesions. Recommendations do not apply to lung cancer screening, patients with immunosuppression, or patients with known primary cancer. Dictated by: Deshawn Trammell M.D. on 11/19/2024 at 23:17 Approved by: Deshawn Trammell M.D. on 11/19/2024 at 23:20
== END ==
LOC: CT 10:51
PROVIDERS: PCP Internal Medicine; Referring Provider Internal Medicine; Visit Provider Internal Medicine
DX: R91.1 Solitary pulmonary nodule (principal); J98.4 Other disorders of lung; J98.11 Atelectasis; K44.9 Diaphragmatic hernia without obstruction or gangrene; K76.0 Fatty (change of) liver, not elsewhere classified
CPT/HCPCS: 71250

== ENCOUNTER → 2024-12-22 16:44 | Outpatient (CLI) | payer OTHER, SELFPAY ==
[2024-12-22 17:58] LABS: Add Manual Diff / Slide Review NO; Hematocrit 45.5 % (41-53); Hemoglobin 16.3 g/dL (13.5-17.5); Lymphocytes Absolute Auto 1800 /uL (1100-4500); Mean Corpuscular HGB Conc 35.9 % (30-36); Mean Corpuscular Hemoglobin 31.1 PG (26-34); Mean Corpuscular Volume 86.5 fL (80-100); Platelet Count 225 X10^3/uL (150-400)
[2024-12-22 18:24] LABS: Alanine Aminotransferase 53 IU/L (<50); Albumin 5.1 g/dL (3.5-5.0); Albumin Globulin Ratio 1.9 (1.0-2.8); Alkaline Phosphatase 66 U/L (38-126); Blood Urea Nitrogen 13 mg/dL (9-20); Calcium 9.6 mg/dL (8.4-10.2); Carbon Dioxide 27 mmol/L (22-32); Chloride 101 mmol/L (98-107); Estimated Glomerular Filt Rate > 60 mL/min (>60); Globulin 2.7 g/dL (1.7-4.1); Glucose 79 mg/dL (70-99); HEMOLYSIS < 15 (0-50); Potassium 3.9 mmol/L (3.4-5.1); Sodium 139 mmol/L (137-145); Total Protein 7.8 g/dL (6.3-8.2)
[2024-12-22 18:42] LABS: Free T4, Direct Thyroxine 0.81 ng/dL (0.78-2.19)
[2024-12-22 18:56] LABS: Thyroid Stimulating Hormone 2.00 uIU/mL (0.47-4.68)
== END ==
PROVIDERS: PCP Internal Medicine; Referring Provider Internal Medicine; Visit Provider Internal Medicine
DX: R94.5 Abnormal results of liver function studies (principal); E80.4 Gilbert syndrome; R91.1 Solitary pulmonary nodule
CPT/HCPCS: 36415; 80053; 84439; 84443; 85025